=== PATIENT | male | born 1960 | race Caucasian/White ===

== ENCOUNTER 2019-11-09 14:59 | Emergency (ER) | payer BC, SELFPAY ==
[2019-11-09 14:59] VITALS: BP 151/74; PULSE 114; RESP 20; TEMP 39.1; O2SAT 98; BMI 29.5
[2019-11-09 15:10] VITALS: BMI 29.5
--- NOTE | 2019-11-09 15:11 | XR_ITS ---
PROCEDURE: XR CHEST PORTABLE CLINICAL HISTORY: fever, sob COMPARISON: CXR1 CHEST-PORTABLE from 07/16/2012 CXR CHEST(2 VIEWS-NOT PORTABLE) from 02/06/2013 CXR CHEST(2 VIEWS-NOT PORTABLE) from 10/08/2014 FINDINGS: The cardiomediastinal silhouette and pulmonary vascularity are within normal limits. The lungs are clear without infiltrates, suspicious nodules, or pleural effusions. No acute bony abnormalities. IMPRESSION: No acute findings. Dictated by: Andrey Guerin MD 11/09/2019 16:00 Electronically signed by Andrey Guerin MD in [place] 11/09/2019 16:00
--- NOTE | 2019-11-09 15:23 | [facility].EDGENADL ---
ED Disposition Clinical Impression: Suspected COVID-19 virus infection Disposition: Home, Self-Care Condition on Discharge: Fair Additional Instructions: You have been evaluated for cough, fever, chills, shortness of breath. Most likely diagnosis is infectious etiology, concern for COVID 19. Your test results should come back within 48 hours. Please self isolate. Take Tylenol for pain and fever. Follow-up with your primary care doctor in 1 to 2 days for symptom recheck. Return to the emergency department if you have any new or worsening symptoms, worsening difficulty breathing, chest pain, other concerns. Referrals: Benjy Delgadillo MD [Primary Care Provider] - - Critical Care Critical Care Time: No Attestation: On , the high probability of a clinically significant, sudden or life threatening deterioration of the following system(s) required my full and direct attention, intervention and personal management. The time I documented below is in addition to time spent performing reported procedures but includes the following listed in this critical care notation. Medical Decision Making - Medical Records Medical records reviewed: Yes: I reviewed the patient's medical records. - Sánchez Inquiry Pt receiving controlled substance: No Vital Signs: 11/09/19 14:59 11/09/19 18:27 11/09/19 18:32 Temperature 102.4 F H 99 F Temperature Source Oral Oral Pulse Rate 78 Pulse Rate [Left Radial] 114 H 84 Respiratory Rate 20 18 18 Blood Pressure 126/88 Blood Pressure [Right Arm] 151/74 H 138/68 Blood Pressure Mean [Right Arm] 99 91 Blood Pressure Source [Right Arm] Automatic Cuff Blood Pressure Position Sitting Blood Pressure Position [Right Arm] Sitting Sitting 02 Sat by Pulse Oximetry 98 100 Oxygen Delivery Method Room Air Room Air Room Air - Lab Data Lab Results 11/09/19 15:27: WBC 15.4 H, RBC 4.80, Hgb 14.8, Hct 43.3, MCV 90.4, MCH 30.9, MCHC 34.2, RDW 12.5, Plt Count 120 L, MPV 8.7, Neut % (Auto) 89.2 H, Lymph % (Auto) 5.2 L, [place] % (Auto) 5.2, Eos % (Auto) 0.2, Baso % (Auto) 0.2, Neut # (Auto) 13.7 H, Lymph # (Auto) 0.8, [place] # (Auto) 0.8, Eos # (Auto) 0.0, Baso # (Auto) 0.0, Total Counted 100, Neutrophils % (Manual) 87 H, Band Neutrophils % 4.0, Lymphocytes % (Manual) 6 L, Monocytes % (Manual) 3, Platelet Estimate Normal, RBC Morphology Normal 11/09/19 15:27: Sodium 137, Potassium 4.3, Chloride 101, Carbon Dioxide 28, Anion Gap 12.3, BUN 19, Creatinine 1.30 H, Estimated Creat Clear 83, Estimated GFR 56 L, Est GFR ( Amer) 68, Glucose 113 H, Calcium 9.4, Total Bilirubin 2.5 H, AST 31, ALT 27, Alkaline Phosphatase 105, Troponin I 0.01, C-Reactive Protein 203.7 H, Total Protein 7.6, Albumin 4.2, Globulin 3.4 H, Albumin/Globulin Ratio 1.2 11/09/19 15:27: Lactate 1.2 11/09/19 15:27: D-Dimer 813 H* 11/09/19 15:27: Lactate Dehydrogenase 188 L Result diagrams: 11/09/19 15:27 11/09/19 15:27 Orders (Tests/Meds): ED MEDICATIONS Discontinued Medications Generic Name Dose Route Start Last Admin Trade Name Freq PRN Reason Stop Dose Admin Acetaminophen 1,000 mg 11/09/19 15:11 11/09/19 15:16 Tylenol 500mg Tablet PO 11/09/19 15:12 1,000 mg ONCE ONE Administration Sodium Chloride 1,000 mls @ 999 mls/hr 11/09/19 17:15 11/09/19 17:39 Sod Chlor 0.9% 1000ml Bag IV 11/09/19 18:15 999 mls/hr .Q1H1M BRETT Administration ORDERS Category Date Time Status Procalcitonin Routine Lab 11/09/19 15:27 Received SARS-CoV-2, VIOLA Stat Lab 11/09/19 15:28 Received Blood Culture Stat Micro 11/09/19 15:27 Received Medical Decision Narrative: In summary this is a 59-year-old male presenting to the emergency department with myalgias, malaise, cough, fever. Patient appears to feel unwell on arrival, vital signs are stable. He is tachycardic to 110. Differential diagnoses include viral upper respiratory infection, pneumonia, bronchitis, COVID. Plan to obtain CBC, CMP, procalcitonin, lacta
--- NOTE | 2019-11-09 15:31 | PC.NURSE ---
LAB HERE TO DO COVID SWAB
[2019-11-09 15:38] LABS: Basophils % 0.2 % (0.1-2.0); Eosinophils % 0.2 % (0.1-12.0); Hematocrit 43.3 % (42.0-52.0); Hemoglobin 14.8 g/dL (14.1-18.0); Lymphocytes # 0.8 K/mm3 (0.7-4.5); Lymphocytes % 5.2 % (10-50); Mean Corpuscular HGB Conc 34.2 g/dL (31.8-35.4); Mean Corpuscular Hemoglobin 30.9 pg (27.0-31.2); Mean Corpuscular Volume 90.4 fl (80-94); Mean Platelet Volume 8.7 fl (7.4-10.4); Monocytes # 0.8 K/mm3 (0.1-1.0); Monocytes % 5.2 % (1.7-9.3); Neutrophils # 13.7 K/mm3 (1.8-7.8); Neutrophils % 89.2 % (37.0-80.0); Platelet Count 120 K/mm3 (142-424); Red Cell Distribution Width 12.5 % (11.5-17.5); White Blood Count 15.4 K/mm3 (4.8-10.8)
[2019-11-09 15:43] LABS: MANUAL DIFFERENTIAL MANUAL DIFFERENTIAL (MANUAL DIFF)
[2019-11-09 15:45] LABS: Alanine Aminotransferase 27 U/L (12-78); Albumin Level 4.2 g/dl (3.5-5.0); Albumin/Globulin Ratio 1.2 (1.1-1.8); Alkaline Phosphatase 105 U/L (38-126); Anion Gap 12.3 mEq/L (5-15); Aspartate Amino Transferase 31 U/L (17-59); Bilirubin,Total 2.5 mg/dl (0.2-1.3); Blood Urea Nitrogen 19 mg/dl (9-20); Calcium 9.4 mg/dl (8.4-10.2); Carbon Dioxide 28 mmol/L (22.0-30.0); Chloride 101 mmol/L (98-107); Creatinine Clearance Estimated 83 mL/min (50-200); Estimated Glomerular Filt Rate 56 ml/min (>60); GFR (African American) 68 ML/MIN (>60); Globulin 3.4 g/dL (1.3-3.2); Glucose 113 mg/dl (74-100); Lactate Dehydrogenase 188 U/L (313-618); Lactic Acid 1.2 mmol/L (0.7-2.1); Potassium 4.3 mmoL/L (3.5-5.1); Sodium 137 mmol/L (136-145); Total Protein,Serum 7.6 g/dl (6.3-8.2)
[2019-11-09 15:50] LABS: C-Reactive Protein 203.7 mg/L (0-4)
[2019-11-09 16:07] LABS: Troponin I 0.01 ng/ml (0.00-0.034)
[2019-11-09 16:49] LABS: Lymphocytes % 6 % (10-50); Monocytes % 3 % (2-9); Neutrophils % 87 % (42-76); Platelet Estimate Normal; RBC Morphology Normal; Total Cells Counted 100
[2019-11-09 16:53] LABS: D-Dimer 813 ng/mL (0-400)
[2019-11-09 18:27] VITALS: BP 138/68; PULSE 84; RESP 18; O2SAT 100
[2019-11-09 18:32] VITALS: BP 126/88; PULSE 78; RESP 18; TEMP 37.2; O2SAT 97
[2019-11-11 13:34] LABS: Covid-19 Nasal PCR Sendout Lex Not Detected
[2019-11-14 05:38] LABS: Procalcitonin 0.47 ng/mL (0.00-0.08)
== END 2019-11-09 18:34 | disposition home or self-care (01) ==
PROVIDERS: Emergency Provider Emergency Medicine; PCP Internal Medicine Adolescent Medicine
DX: Z20.828 Contact with and (suspected) exposure to other viral communicable diseases (principal); F17.210 Nicotine dependence, cigarettes, uncomplicated
CPT/HCPCS: 71045; 80053; 83605; 83615; 84145; 84484; 85007; 85025; 85378; 86140; 87040; 87077; 87186; 96365; 99283; 99284; U0004

== ENCOUNTER → 2020-11-01 11:51 | Outpatient (CLI) | payer OTHER, SELFPAY ==
[2020-11-01 12:21] LABS: Basophils # 0.1 K/mm3 (0-0.2); Eosinophils # 0.1 K/mm3 (0.0-0.4); Eosinophils % 1.1 % (0.1-12.0); Hematocrit 44.5 % (42.0-52.0); Hemoglobin 15.4 g/dL (14.1-18.0); Lymphocytes # 2.5 K/mm3 (0.7-4.5); Lymphocytes % 26.2 % (10-50); Mean Corpuscular HGB Conc 34.5 g/dL (31.8-35.4); Mean Corpuscular Hemoglobin 30.3 pg (27.0-31.2); Mean Corpuscular Volume 87.7 fl (80-94); Mean Platelet Volume 8.8 fl (7.4-10.4); Monocytes # 0.5 K/mm3 (0.1-1.0); Neutrophils # 6.3 K/mm3 (1.8-7.8); Neutrophils % 66.7 % (37.0-80.0); Platelet Count 158 K/mm3 (142-424); Red Blood Count 5.07 M/mm3 (4.60-6.20); White Blood Count 9.5 K/mm3 (4.8-10.8)
[2020-11-01 13:07] LABS: Chloride 105 mmol/L (98-107); Potassium 4.7 mmoL/L (3.5-5.1); Sodium 141 mmol/L (136-145)
[2020-11-01 13:10] LABS: Alanine Aminotransferase 26 U/L (12-78); Albumin Level 4.6 g/dl (3.5-5.0); Albumin/Globulin Ratio 1.6 (1.1-1.8); Alkaline Phosphatase 106 U/L (38-126); Anion Gap 11.7 mEq/L (5-15); Aspartate Amino Transferase 32 U/L (17-59); Bilirubin,Total 1.9 mg/dl (0.2-1.3); Blood Urea Nitrogen 17 mg/dl (9-20); Carbon Dioxide 29 mmol/L (22.0-30.0); Cholesterol 169 mg/dl (140-200); Estimated Glomerular Filt Rate 76 ml/min (>60); GFR (African American) 92 ML/MIN (>60); Globulin 2.9 g/dL (1.3-3.2); Total Protein,Serum 7.5 g/dl (6.3-8.2); Triglycerides 184 mg/dl (30-150); VLDL Cholesterol 37 mg/dL (0-40)
[2020-11-01 13:11] LABS: Calcium 9.5 mg/dl (8.4-10.2); Chol/HDL Ratio 5.3 (1-3.5); Glucose 101 mg/dl (74-100); HDL Cholesterol 32 mg/dl (40-60)
[2020-11-01 13:21] LABS: Direct LDL Cholesterol 111.76 mg/dL (100-129)
== END ==
PROVIDERS: Visit Provider Internal Medicine Adolescent Medicine
DX: I10 Essential (primary) hypertension (principal); J44.9 Chronic obstructive pulmonary disease, unspecified
CPT/HCPCS: 36415; 80053; 80061; 85025

== ENCOUNTER → 2020-11-25 07:53 | Outpatient (CLI) | payer OTHER, SELFPAY ==
--- NOTE | 2020-11-25 08:10 | CT_ITS ---
PROCEDURE: CT LUNG SCREENING CLINICAL INDICATION: H/O NICOTINE DEPENDENCE COMPARISON: No exams were available for comparison TECHNIQUE: The exam was performed on a GE Light Speed [address] scanner using 2.90 mGy CTDI. A low dose helical CT CHEST was performed on a multi-detector scanner. All CT scans at the facility use one or more dose reduction, viz: automated exposure control, ma/kV adjustment per patient size (including targeted exams where dose is matched to indication, i.e. head), or iterative reconstruction technique. The LDCT was performed in a facility that meets the criteria for the screening program. Data regarding this exam was submitted to ACR which is an approved registry. The order for this exam indicates that it came as a result of a lung cancer screening counseling shard decision-making visit that included all the elements required of such a visit including smoking cessation. The radiologist interpreting this exam meets the CMS criteria for the LDCT lung cancer screening program. The exam is reported using the Lung-RADS classification scale and reported to the ACR registry. NOTE: This study was performed for the specific purposes of lung cancer screening and is not an alternative to diagnostic chest CT. RADIATION DOSE: CTDI vol(CT dose Index-volume) = 2.90mG DLP (Dose Length Product) = 120.37 mGcm FINDINGS: COPD changes. Mild scarring in the right upper lobe posteriorly. There are a few small pleural and parenchymal nodular opacities less than 3 mm. No suspicious pulmonary nodules. There are few small mediastinal and hilar lymph nodes. OTHER FINDINGS: No other pertinent findings evident. IMPRESSION: Lung-RADS Category 2 Benign Appearance or Behavior Follow-up: Continue annual screening with LDCT in 12 months Dictated by: Andrey Guerin MD 12/01/2020 13:21 Andrey Guerin MD in [place] 12/01/2020 13:21
== END ==
PROVIDERS: PCP Internal Medicine Adolescent Medicine; Visit Provider Internal Medicine Adolescent Medicine
DX: Z87.891 Personal history of nicotine dependence (principal); Z12.2 Encounter for screening for malignant neoplasm of respiratory organs
CPT/HCPCS: 71271